=== PATIENT | female | born 1985 | race American Indian/Alaskan Native ===

== ENCOUNTER 2019-05-11 10:19 | Emergency (ER) | payer MEDICAID ==
[2019-05-11] MEDS ORDERED: Ibuprofen 800 MG Tab PO ONE (11:31)
--- NOTE | 2019-05-11 11:31 | EDM.PDOC ---
ED HPI GENERAL MEDICAL PROBLEM - General Chief Complaint: Lower Extremity Injury/Pain Stated Complaint: POSSIBLE BROKEN BONE Time Seen by Provider: 05/11/19 11:10 Source of Information: Reports: Patient History Limitations: Reports: No Limitations - History of Present Illness INITIAL COMMENTS - FREE TEXT/NARRATIVE: 34-year-old female who states that she was walking to work and that it had just began to rain and she slipped and tripped falling on her left side and twisting her right ankle. This occurred approximately 9:45 AM today. She did not hit her head. She complains of a scrape and mild pain to her left hand and left knee and more severe pain to her right ankle and proximal foot. She reports the pain in her ankle and foot is an 8/10. It is sharp and shoots up her lower leg. It is worse with movement and with palpation. No numbness or tingling in her right toes or foot She has not been able to ambulate after this injury occurred. No neck pain. No back pain. Presents to the emergency department via private vehicle with her fianc. There are no other associated signs or symptoms. There are no other modifying factors. Onset: Today (9:45 AM) Duration: Constant Location: Reports: Upper Extremity, Left (Left hand), Lower Extremity, Left ( Left knee), Lower Extremity, Right (Right foot and ankle) Quality: Reports: Sharp Severity: Moderate Improves with: Reports: Immobilization, Rest Worsens with: Reports: Other (Palpation), Movement Context: Reports: Activity (As above) Associated Symptoms: Reports: No Other Symptoms Treatments CONVERSION MAN: Reports: Other (see below) (Nothing) RT ANKLE AND FOOT Pain Score (Numeric/FACES): 8 - Related Data Allergies Allergy/AdvReac Type Severity Reaction Status Date / Time cephalexin Allergy Hives Verified 05/11/19 10:51 Home Meds: Home Meds Gabapentin [Neurontin] 300 mg PO TID 05/11/19 [History] Mirtazapine 15 mg PO BEDTIME 05/11/19 [History] cloNIDine [Catapres] 0.1 mg PO DAILY 05/11/19 [History] Past Medical History Musculoskeletal History: Reports: Back Pain, Chronic Psychiatric History: Reports: Anxiety - Past Surgical History Female Surgical History: Reports: Tubal Ligation, Other (See Below) ( Laparoscopy) Social & Family History - Tobacco Use Smoking Status *Q: Current Every Day Smoker Years of Tobacco use: 20 Packs/Tins Daily: 1 - Caffeine Use Caffeine Use: Reports: Coffee - Recreational Drug Use Recreational Drug Use: No - Living Situation & Occupation Living situation: Reports: with Significant Other Occupation: Employed (Works at [employer]) Review of Systems - Review of Systems Review Of Systems: See Below Constitutional: Reports: No Symptoms (The patient reports that her last tetanus immunization was less than 5 years ago.) Eyes: Reports: No Symptoms Ears: Reports: No Symptoms Nose: Reports: No Symptoms Mouth/Throat: Reports: No Symptoms Respiratory: Reports: No Symptoms Cardiovascular: Reports: No Symptoms GI/Abdominal: Reports: No Symptoms Genitourinary: Reports: No Symptoms Musculoskeletal: Reports: Hand Pain (Mild left hand pain with abrasion), Foot Pain (Mild proximal right foot pain), Joint Pain (Mild left knee pain with abrasion. Right ankle pain with mild swelling.) Skin: Reports: Other (Abrasions on left hand and left anterior knee.) Neurological: Reports: No Symptoms ED EXAM, GENERAL - Physical Exam Exam: See Below Exam Limited By: No Limitations General Appearance: Alert, WD/WN, Moderate Distress (Seems somewhat anxious.) Eye Exam: Bilateral Eye: EOMI, Normal Inspection Ears: Normal External Exam Ear Exam: Bilateral Ear: Auricle Normal Nose: Normal Inspection, Normal Mucosa, No Blood Throat/Mouth: Normal Inspection, Normal Oropharynx, Normal Voice, No Airway Compromise Head: Atraumatic, Normocephalic Neck: Normal Inspection, Supple, Non-Tender, Full Range of Motion Respiratory/Chest: No Respiratory Distress, Lungs Clear, Normal Breath Sounds, No Accessory Muscle Use, Chest Non-Tender Cardiovascular: Normal Peripheral Pulses, Regular Rate, Rhythm, No JVD Peripheral Pulses: 2+: Radial (L), Radial (R), Dorsalis Pedis (L), Dorsalis Pedis (R) GI/Abdominal: Normal Bowel Sounds, Soft, Non-Tender Back Exam: Normal Inspection Extremities: Normal Range of Motion (Despite pain), Normal Capillary Refill, Joint Swelling (Right ankle), Other (Mild soft tissue swelling on anterior knee) Neurological: Alert, Oriented, CN II-XII Intact, Normal Cognition, No Motor/ Sensory Deficits Psychiatric: Anxious Skin Exam: Warm, Dry, Normal Color, Wound/Incision (Abrasion on left palm and left knee) Course - Vital Signs Last Recorded V/S: Last Vital Signs Temp 36.7 C 05/11/19 10:35 Pulse 77 05/11/19 10:35 Resp 17 05/11/19 10:35 BP 111/71 05/11/19 10:35 Pulse Ox 100 05/11/19 10:35 - Orders/Labs/Meds Orders: Active Orders 24 hr Category Date Time Status Ankle Min 3V Rt [CR] Stat Exams 05/11/19 10:59 Taken Foot Comp Min 3V Rt [CR] Stat Exams 05/11/19 10:57 Stop Req Foot Comp Min 3V Rt [CR] Stat Exams 05/11/19 10:57 Taken Meds: Medications Discontinued Medications Generic Name Dose Route Start Last Admin Trade Name Freq PRN Reason Stop Dose Admin Ibuprofen 800 mg 05/11/19 11:31 Motrin PO 05/11/19 11:32 ONETIME ONE - Radiology Interpretation Free Text/Narrative:: X-rays of right foot and right ankle showed no definite fracture. - Re-Assessments/Exams Free Text/Narrative Re-Assessment/Exam: 05/11/19 11:29: Patient was unable to ambulate to the bathroom secondary to the pain. The x-ray showed no evidence of fracture. She does appear to have a moderate sprain of her ankle. We will place the patient in an Rudy wrap and we will fit the patient for an air splint that she will need to use with a pair of lace up shoes and will use when she begins to bear weight. For now we will fit her with crutches with nonweightbearing for the next few days and then weightbearing as tolerated using the air splint after that. The patient will be given ibuprofen 800 mg by mouth for pain. Departure - Departure Time of Disposition: 11:35 Disposition: Home, Self-Care 01 Condition: Good Clinical Impression: Abrasion, left knee, initial encounter, Abrasion of left hand, initial encounter, Contusion of left hand, initial encounter Moderate right ankle sprain Qualifiers: Encounter type: initial encounter Qualified Code(s): S93.401A - Sprain of unspecified ligament of right ankle, initial encounter Contusion of left knee Qualifiers: Encounter type: initial encounter Qualified Code(s): S80.02XA - Contusion of left knee, initial encounter - Discharge Information Instructions: Crutch Use, Adult, [id number], How to Use a Stirrup Ankle Brace , [id number], Contusion, [id number], Abrasion, [id number] Referrals: Stephanie Rowland NP [Primary Care Provider] - Forms: ED Department Discharge Additional Instructions: The x-rays of your right ankle and right foot showed no definite fracture. Use the Rudy wrap for comfort and support and use the crutches with no weightbearing on your right foot for the next few days. And 2-3 days, use the air splint that we provided you and begin bearing weight as tolerated. Apply ice packs intermittently to your right foot and ankle of the next few days. Do range of motion with your right ankle beginning today. You may take ibuprofen and Tylenol as needed for pain. Back to the emergency department for marked increase in pain, redness or any other concerning sign or symptom. - My Orders Last 24 Hours: My Active Orders 05/11/19 10:57 Foot Comp Min 3V Rt [CR] Stat Foot Comp Min 3V Rt [CR] Stat 05/11/19 10:59 Ankle Min 3V Rt [CR] Stat - Assessment/Plan Last 24 Hours: My Active Orders 05/11/19 10:57 Foot Comp Min 3V Rt [CR] Stat Foot Comp Min 3V Rt [CR] Stat 05/11/19 10:59 Ankle Min 3V Rt [CR] Stat
== END 2019-05-11 11:45 | disposition home or self-care (01) ==
LOC: FB.ED 10:19
DX: S93.401A Sprain of unspecified ligament of right ankle, initial encounter (principal); S80.02XA Contusion of left knee, initial encounter; S60.222A Contusion of left hand, initial encounter; F17.210 Nicotine dependence, cigarettes, uncomplicated; Z88.1 Allergy status to other antibiotic agents; Z98.51 Tubal ligation status; X50.1XXA Overexertion from prolonged static or awkward postures, initial encounter
CPT/HCPCS: 73610; 73630; 99283; A9270